=== PATIENT | female | born 1965 | race Caucasian/White ===

== ENCOUNTER 2021-06-18 17:03 | Inpatient (IN) | payer BC ==
[~2021-06-18] VITALS: Ht 175.3 cm; Wt 95.7 kg
--- NOTE | 2021-06-18 17:24 | NUR ---
BIB [facility],C/O EPIGASTRIC PAIN WHILE DRIVING A SCHOOL BUS. PLACED COMFORTABLY IN BED. VITALS CHECKED. DR OSUNA MADE AWARE
[2021-06-18] MEDS ORDERED: LABETALOL HCL IV 100MG VIAL IV ONE ×2 (17:30→21:00)
[2021-06-18] MEDS ORDERED: IOHEXOL-350 100 ML VIAL IV ONE (17:38)
[2021-06-18] MEDS ORDERED: IV NS 0.9% 250 ML IV ONE (17:38)
--- NOTE | 2021-06-18 17:38 | NUR ---
EKG DONE AT BEDSIDE, SEEN BY DR OSUNA.
--- NOTE | 2021-06-18 17:40 | NUR ---
WHEELED PATIENT TO CT DEPT FOR CTA.
--- NOTE | 2021-06-18 17:40 | NUR ---
IV CANNULA G 18 INSERTED ON RIGHT AC. BLOOD DRAWN AND SENT TO LAB.
[2021-06-18 17:49] LABS: BASOPHILS # (AUTO) 0.1 K/uL (0.0-0.2); BASOPHILS % (AUTO) 0.7 % (0.0-2.0); EOSINOPHILS % (AUTO) 1.9 % (0.0-6.0); HEMATOCRIT 43 % (33-45); HEMOGLOBIN 14.7 g/dL (11.5-14.8); LYMPHOCYTES % (AUTO) 23.2 % (20.0-44.0); MEAN CORPUSCULAR HGB CONC 34 g/dl (31.0-36.0); MEAN CORPUSCULAR VOLUME 86 fL (82-100); MONOCYTES # (AUTO) 0.8 K/uL (0.1-1.30); MONOCYTES % (AUTO) 9.6 % (2.0-12.0); NEUTROPHILS # (AUTO) 5.5 K/uL (1.8-8.9); NEUTROPHILS % (AUTO) 64.6 % (43.0-81.0); PLATELET COUNT (AUTO) 187 K/uL (150-450); RED BLOOD CELL COUNT(AUTO) 5.03 MIL/uL (4.0-5.2); WHITE BLOOD COUNT (AUTO) 8.6 K/uL (4.3-11.0)
[2021-06-18] MEDS ORDERED: LABETALOL HCL IV 100MG VIAL ONE (17:52)
[2021-06-18 18:13] LABS: CALCIUM, SERUM 10.1 mg/dL (8.5-10.1); CARBON DIOXIDE 27 mmol/L (21-32); CHLORIDE 98 mmol/L (98-107); CREATININE 0.8 mg/dL (0.6-1.3); GLUCOSE 189 mg/dL (74-106); POTASSIUM 3.5 mmol/L (3.5-5.1); SODIUM SERUM 133 mmol/L (136-145); UREA NITROGEN, BLOOD 16 mg/dL (7-18)
[2021-06-18 19:33] LABS: ALBUMIN 4.4 g/dL (3.4-5.0); BILIRUBIN,DIRECT 0.1 mg/dL (0.0-0.2); BILIRUBIN,TOTAL 0.8 mg/dL (0.2-1.0); TOTAL PROTEIN, SERUM 8.8 g/dL (6.4-8.2)
[2021-06-18] MEDS ORDERED: MAG HYDROX/AL HYDROX/SIMETH 30 ML UDC ONE (20:17)
[2021-06-18] MEDS ORDERED: LIDOCAINE VISCOUS 2% UD 15 ML UDC ONE (20:18)
--- NOTE | 2021-06-18 20:23 | NUR ---
US of GALLBLADDER done at bedside
[2021-06-18] MEDS ORDERED: LIDOCAINE VISCOUS 2% UD 15 ML UDC MM ONE (20:30)
[2021-06-18] MEDS ORDERED: MAG HYDROX/AL HYDROX/SIMETH 30 ML UDC PO ONE (20:30)
--- NOTE | 2021-06-18 20:48 | NUR ---
PAGED DR KILPATRICK.
--- NOTE | 2021-06-18 20:56 | NUR ---
COVID SWAB DONE AND SENT TO LAB
[2021-06-18] MEDS ORDERED: MORPHINE SULFATE INJ 2 MG/ML DISP.SYRIN IV ONE (21:00)
--- NOTE | 2021-06-18 21:20 | NUR ---
CALLED [facility] PAGED [place] SHEETS
[2021-06-18] MEDS ORDERED: MORPHINE SULFATE INJ 4 MG/ML DISP.SYRIN ONE (21:28)
[2021-06-18] MEDS ORDERED: QUET100T PO (22:18)
[2021-06-18] MEDS ORDERED: GLIP10TA11 PO (22:18)
[2021-06-18] MEDS ORDERED: FLUO40CA49 PO (22:18)
[2021-06-18] MEDS ORDERED: ATOR20TA PO (22:18)
[2021-06-18] MEDS ORDERED: AMLO-212 PO (22:18)
[2021-06-18] MEDS ORDERED: LISI40TA13 PO (22:18)
[2021-06-18] MEDS ORDERED: METO-358 PO (22:18)
[2021-06-18] MEDS ORDERED: HYDROCODONE/APAP 10/325MG TABLET PO PRN (22:30)
[2021-06-18] MEDS ORDERED: MAG HYDROX/AL HYDROX/SIMETH 30 ML UDC PO PRN (22:30)
[2021-06-18] MEDS ORDERED: ONDANSETRON HCL/PF 4 MG/2 ML VIAL IVP PRN (22:30)
[2021-06-18] MEDS ORDERED: ACETAMINOPHEN 325 MG TABLET PO PRN (22:30)
[2021-06-18] MEDS ORDERED: HYDROMORPHONE INJ 2 MG/ML DISP.SYRIN IV PRN (22:30)
[2021-06-18] MEDS ORDERED: Z GUARD REMEDY 4 OZ OINT TP PRN (22:30)
[2021-06-18] MEDS ORDERED: MAGNESIUM HYDROXIDE 30 ML UDC PO PRN (22:30)
[2021-06-18] MEDS ORDERED: ZOLPIDEM TARTRATE 5 MG TABLET PO PRN (22:30)
--- NOTE | 2021-06-18 22:40 | NUR ---
ROOM 104
--- NOTE | 2021-06-18 22:52 | NUR ---
REPORT GIVEN TO JUAN MIGUEL ANTONY,.
[2021-06-18 23:20] VITALS: BP 148/80
--- NOTE | 2021-06-18 23:20 | NUR ---
telegraph editor notes Admitted a 55 y/o female a/ox4 able to make needs known with admitting dx of aortic dissection/intractable abdominal pain, admission routine care rendered pts is nkda full code with right ac #g20 intact and patent , with ivf of ns at 75cc/hr infusing well , pts is npo status no complain of pain at this time no sob no distress noted pts on tele sr on the monitor, all needs attended too , call light within reach , kept pts clean dry and comfortable v/s stable afebrile .on zosyn iv atb no ase noted,will endorse to morning shift for continuity of .care
--- NOTE | 2021-06-18 23:20 | NUR ---
WHEELED PATIENT TO [facility].
[2021-06-18] MEDS ORDERED: *INSULIN REGULAR(HUMULIN R)HUM 100 UNIT/ML VIAL SQ PRN (23:30)
[2021-06-18] MEDS ORDERED: INSULIN REGULAR, HUMAN 100 UNIT/ML 3 ML VIAL SQ PRN (23:30)
[2021-06-18] MEDS ORDERED: DEXTROSE 50%-WATER 50 ML DISP.SYRIN IV PRN (23:30)
[2021-06-19] MEDS ORDERED: PIPERACILLIN /TAZOBACTAM 3.375 G VIAL IV ONE ×2 (01:08→06:05)
[2021-06-19] MEDS: ZOSYN IVPB 3.375 G in IV D5W 50ml IV SCH ×2 (01:09→06:13)
[2021-06-19] MEDS: IV NS 0.9% 1,000 ML IV PRN ×2 (01:10→17:30)
--- NOTE | 2021-06-19 03:00 | NUR ---
0300 ASSISTED TO BATHROOM WITH STEADY GAIT. VOIDED WITHOUT DIFFICULTY. NO C/O PAIN WHEN ASKED.
[2021-06-19 04:00] VITALS: BP 132/67
[2021-06-19 06:47] LABS: ALBUMIN 3.3 g/dL (3.4-5.0); BILIRUBIN,TOTAL 0.8 mg/dL (0.2-1.0); CALCIUM, SERUM 8.7 mg/dL (8.5-10.1); CREATININE 0.6 mg/dL (0.6-1.3); PHOSPHORUS 3.8 mg/dL (2.5-4.9); POTASSIUM 3.3 mmol/L (3.5-5.1)
--- NOTE | 2021-06-19 06:58 | NUR ---
SALESPERSON SHOES NOTES REMAINS IN BED AWAKE ALERT AND RESPONSIVE , ON IVF OF NS AT 75CC/HR INFUSING WELL .PTS ON ROOM AIR SATING 97% NO C/O OF PAIN AT THIS TIME , WILL ENDORSE TO RN DAY SHIFT FOR CONTINUITY OF CARE
[2021-06-19 07:08] LABS: BASOPHILS % (AUTO) 0.5 % (0.0-2.0); HEMATOCRIT 37 % (33-45); HEMOGLOBIN 12.4 g/dL (11.5-14.8); LYMPHOCYTES # (AUTO) 2.7 K/uL (0.8-4.8); LYMPHOCYTES % (AUTO) 35.6 % (20.0-44.0); MEAN CORPUSCULAR HGB CONC 33 g/dl (31.0-36.0); MEAN CORPUSCULAR VOLUME 87 fL (82-100); MONOCYTES # (AUTO) 0.8 K/uL (0.1-1.30); NEUTROPHILS % (AUTO) 51.9 % (43.0-81.0); PLATELET COUNT (AUTO) 170 K/uL (150-450); RED BLOOD CELL COUNT(AUTO) 4.28 MIL/uL (4.0-5.2); WHITE BLOOD COUNT (AUTO) 7.7 K/uL (4.3-11.0)
[2021-06-19] MEDS: BLOOD SUGAR DIAGNOSTIC 1 EACH STRIP VI SCH ×4 (07:47→23:03)
--- NOTE | 2021-06-19 07:48 | NUR ---
RN OPENING NOTE PATIENT RECEIVED IN BED, AO X 4, ABLE TO RESPONDS ALL STIMULI. IN NO ACUTE DISTRESS NOTED. PANEL MACHINE OPERATOR SHOWS SR-80'S. RESPIRATORY EVEN AND UNLABORED ON ROOM. SKIN IS WARM TO TOUCH, KEEP CLEAN/DRY, INTACT IV SITE. KEPT ELEVATED HOB FOR ENSURE AIRWAY AND ASPIRATION PRECAUTION, ALSO LOWEST POSITION OF THE BED, S/R UP X 2, ALL SAFETY PRECAUTION APPLIED. CALL LIGHT WITHIN REACH, WILL CONTINUE TO MONITOR.
[2021-06-19 08:00] VITALS: BP 128/77
[2021-06-19] MEDS: PANTOPRAZOLE 40 MG VIAL IV SCH (08:08)
[2021-06-19] MEDS: AMLODIPINE BESYLATE 5 MG TABLET PO SCH (08:22)
[2021-06-19] MEDS: METOPROLOL SUCCINATE 50 MG TAB.SR.24H PO SCH (08:23)
[2021-06-19] MEDS: FLUOXETINE HCL 20 MG CAPSULE PO SCH (08:23)
[2021-06-19] MEDS: LISINOPRIL (20MG) 20 MG TABLET PO SCH (08:23)
[2021-06-19] MEDS ORDERED: POTASSIUM CL. PREMIX PERIPHER. 50 ML IV SCH (10:00)
[2021-06-19 12:00] VITALS: BP_SYST 142; BP_SYST 143; BP_DIAS 85; BP_DIAS 89
[2021-06-19] MEDS: PIPERACILLIN /TAZOBACTAM 3.375 G in IV D5W 50 ML IV SCH ×2 (12:35→18:55)
[2021-06-19] MEDS ORDERED: POTASSIUM CHLORIDE 20 MEQ TAB.PRT.SR PO SCH (14:00)
[2021-06-19 16:00] VITALS: BP 142/85
--- NOTE | 2021-06-19 17:00 | NUR ---
PATIENT LEFT HIDA SCAN WITH WHEEL CHAIR IN STABLE CONDITION.
--- NOTE | 2021-06-19 18:49 | NUR ---
NM:HIDA SCAN WAS COMPLETED, TECH:RB
--- NOTE | 2021-06-19 19:00 | NUR ---
RN CLOSE NOTE PATIENT IN BED, BACK FROM RADIOLOGY, C/O ABD PAIN AND GIVEN DILAUDID 1MG. IN NO ACUTE DISTRESS OBSERVED. RESPIRATION EVEN AND UNLABORED ON ROOM AIR. SKIN IS WARM TO TOUCH KEEP CLEAN//DRY, INTACT IV SITE. KEPT ELEVATED HOB FOR ENSURE AIRWAY AND ASPIRATION PRECAUTION. ALSO LOWEST POSITION OF THE BED FOR SAFETY. CALL LIGHT WITHIN REACH, WILL ENDORSE TO SUPERVISOR HAND SILVERING.
--- NOTE | 2021-06-19 19:25 | NUR ---
PRODUCTION WEIGHER OPENING NOTES RECEIVED PATIENT LAYING AWAKE IN BED. A/O X4. PATIENT WITH REGULAR AND UNLABORED BREATHING ON ROOM AIR, TOLERATED WELL. NO SIGNS AND SYMPTOMS OF DISTRESS NOTED AT THIS TIME. NO COMPLAINS OF PAIN OR DISCOMFORT AT THIS TIME. IV ACCESS RAC G #18 INFUSING NS @ 75 ML/HR. IV ACCESS PATENT AND INTACT. SAFETY PRECAUTIONS ENFORCED WITH BED LOCKED AND AT LOWEST POSITION. SIDE RAILS UP X2. CALL LIGHT WITHIN REACH AT ALL TIMES. WILL CONTINUE TO MONITOR PATIENT.
[2021-06-19 20:00] VITALS: BP 194/99
[2021-06-19] MEDS ORDERED: QUETIAPINE FUMARATE 100 MG TABLET PO SCH (22:00)
[2021-06-19] MEDS ORDERED: ATORVASTATIN 10 MG TABLET PO SCH (22:00)
--- NOTE | 2021-06-19 23:50 | NUR ---
CARETAKER NOTES IV ACCESS REMOVED CATHETER INTACT. NEW IV INSERTED L WRIST G #22. IV ACCESS PATENT AND INTACT FLUSHING WELL. WILL CONTINUE TO MONITOR PATIENT.
[2021-06-20] VITALS (7 sets, daily range): BP systolic 115–144; BP diastolic 52–89
[2021-06-20] MEDS: PIPERACILLIN /TAZOBACTAM 3.375 G in IV D5W 50 ML IV SCH ×4 (00:22→17:52)
[2021-06-20 06:32] LABS: BASOPHILS % (AUTO) 0.5 % (0.0-2.0); EOSINOPHILS % (AUTO) 3.9 % (0.0-6.0); HEMATOCRIT 38 % (33-45); HEMOGLOBIN 12.7 g/dL (11.5-14.8); LYMPHOCYTES # (AUTO) 2.6 K/uL (0.8-4.8); LYMPHOCYTES % (AUTO) 40.7 % (20.0-44.0); MEAN CORPUSCULAR HGB CONC 34 g/dl (31.0-36.0); MEAN CORPUSCULAR VOLUME 87 fL (82-100); MONOCYTES # (AUTO) 0.8 K/uL (0.1-1.30); MONOCYTES % (AUTO) 11.8 % (2.0-12.0); NEUTROPHILS # (AUTO) 2.7 K/uL (1.8-8.9); NEUTROPHILS % (AUTO) 43.1 % (43.0-81.0); PLATELET COUNT (AUTO) 173 K/uL (150-450); RED BLOOD CELL COUNT(AUTO) 4.37 MIL/uL (4.0-5.2); WHITE BLOOD COUNT (AUTO) 6.4 K/uL (4.3-11.0)
--- NOTE | 2021-06-20 06:45 | NUR ---
DRAFTER COMMERCIAL CLOSING NOTES PATIENT STILL LAYING AWAKE IN BED. A/O X4. PATIENT WITH REGULAR AND UNLABORED BREATHING ON ROOM AIR, TOLERATED WELL. NO SIGNS AND SYMPTOMS OF DISTRESS NOTED AT THIS TIME. NO COMPLAINS OF PAIN OR DISCOMFORT AT THIS TIME. PATIENT ON TELE MONITOR READING SR @ 78 BPM. IV ACCESS L WRIST G #22 INFUSING NS @ 75 ML/HR. IV ACCESS PATENT AND INTACT. SAFETY PRECAUTIONS ENFORCED WITH BED LOCKED AND AT LOWEST POSITION. SIDE RAILS UP X2. CALL LIGHT WITHIN REACH AT ALL TIMES. WILL ENDORSE CONTINUITY OF CARE TO DAY SHIFT NURSE.
[2021-06-20 06:57] LABS: ALBUMIN 3.4 g/dL (3.4-5.0); BILIRUBIN,TOTAL 1.2 mg/dL (0.2-1.0); CALCIUM, SERUM 8.8 mg/dL (8.5-10.1); CREATININE 0.7 mg/dL (0.6-1.3); MAGNESIUM 2.1 mg/dL (1.8-2.4); POTASSIUM 3.6 mmol/L (3.5-5.1); TOTAL PROTEIN, SERUM 7.2 g/dL (6.4-8.2)
--- NOTE | 2021-06-20 07:32 | NUR ---
RN OPENING NOTES RECEIVED PATIENT ASLEEP IN BED. A/O X4. PATIENT WITH REGULAR AND UNLABORED BREATHING ON ROOM AIR, TOLERATED WELL. NO SIGNS AND SYMPTOMS OF DISTRESS NOTED AT THIS TIME. NO COMPLAINS OF PAIN OR DISCOMFORT AT THIS TIME. WITH LEFT IV ACCESS INFUSING WITH NS 75 ML/HR. IV ACCESS PATENT AND INTACT, WITH NO SIGNS OF INFILTRATION. SAFETY PRECAUTIONS ENFORCED WITH BED LOCKED AND AT LOWEST POSITION. SIDE RAILS UP X2. CALL LIGHT WITHIN REACH AT ALL TIMES. WILL CONTINUE TO MONITOR PATIENT THROUGHOUT SHIFT.
[2021-06-20] MEDS: BLOOD SUGAR DIAGNOSTIC 1 EACH STRIP VI SCH ×3 (07:58→17:40)
[2021-06-20] MEDS: PANTOPRAZOLE 40 MG VIAL IV SCH (08:56)
[2021-06-20] MEDS: LISINOPRIL (20MG) 20 MG TABLET PO SCH (08:57)
[2021-06-20] MEDS: AMLODIPINE BESYLATE 5 MG TABLET PO SCH (08:58)
[2021-06-20] MEDS: METOPROLOL SUCCINATE 50 MG TAB.SR.24H PO SCH (08:58)
[2021-06-20] MEDS: FLUOXETINE HCL 20 MG CAPSULE PO SCH (08:59)
[2021-06-20] MEDS: IV NS 0.9% 1,000 ML IV PRN (15:15)
--- NOTE | 2021-06-20 18:24 | NUR ---
RN CLOSING NOTE PATIENT AWAKE IN BED. A/O X4. PATIENT WITH REGULAR AND UNLABORED BREATHING ON ROOM AIR, TOLERATED WELL. NO SIGNS AND SYMPTOMS OF DISTRESS NOTED AT THIS TIME. NO COMPLAINS OF PAIN OR DISCOMFORT AT THIS TIME. WITH LEFT IV ACCESS INFUSING WITH NS 75 ML/HR, WITH NO SIGNS OF INFILTRATION. DOWNGRADED FROM TELEMETRY TO [facility] F[facility]. SAFETY PRECAUTIONS ENFORCED WITH BED LOCKED AND AT LOWEST POSITION. SIDE RAILS UP X2. CALL LIGHT WITHIN REACH AT ALL TIMES. ALL DUE MEDICATIONS GIVEN AND PATIENT REMAINED STABLE THROUGHOUT SHIFT. WILL ENDORSE TO SPEECH THERAPIST RN.
--- NOTE | 2021-06-20 19:45 | NUR ---
RN NOTES REPORT GIVEN FOR PT TRANSFER TO [facility], SPOKE WITH JUAN MIGUEL CABAN @[phone]. ALL PERTINENT PT INFO GIVEN. CAKE PRESS OPERATOR MADE AWARE.
--- NOTE | 2021-06-20 21:00 | NUR ---
RN NOTES PATIENT DISCHARGED GOING TO [facility]. PICKED UP BY AMBULANCE STAFF IN A GURNEY IN STABLE CONDITION,IN NO ACUTE DISTRESS, BREATHING UNLABORED. PROVIDED DISCHARGE PACKET WHICH INCLUDES MED RECORDS AND DOCUMENTS . ALL BELONGINGS ACCOUNTED FOR. IV ACCESS REMAINED INTACT AND SECURED. PRINTED CIRCUIT BOARD ASSEMBLY REPAIRER MADE AWARE.
== END 2021-06-20 21:17 | disposition short-term general hospital (02) | DRG 444 ==
LOC: ER 17:26 → TELE1 23:08 → MEDSG1 06-20 09:14
PROVIDERS: ADMIT Nurse Practitioner Acute Care
DX: K80.00 Calculus of gallbladder with acute cholecystitis without obstruction (principal); I71.02 Dissection of abdominal aorta; I10 Essential (primary) hypertension; I16.0 Hypertensive urgency; Z20.822 Contact with and (suspected) exposure to COVID-19; E11.9 Type 2 diabetes mellitus without complications; E78.5 Hyperlipidemia, unspecified; Z79.899 Other long term (current) drug therapy; K76.89 Other specified diseases of liver; K83.9 Disease of biliary tract, unspecified; K76.0 Fatty (change of) liver, not elsewhere classified; E66.9 Obesity, unspecified; Z68.31 Body mass index [BMI] 31.0-31.9, adult; I71.4 Abdominal aortic aneurysm, without rupture; I72.3 Aneurysm of iliac artery; K44.9 Diaphragmatic hernia without obstruction or gangrene
CPT/HCPCS: 36415; 71045-TC; 74181-TC; 76705-TC; 78226; 80048-TC; 80053-TC; 80061-TC; 80076-TC; 82962-TC; 83605-TC; 83690-TC; 83735-TC; 83880; 84100-TC; 84484-TC; 85025-TC; 87081-TC; A9537; C9113; C9803; G0378; J1170; J1815; J2270; J2543; J3480; J3490; J7030; J7050; J7060; Q9967; U0003